=== PATIENT | male | born 1985 | race Caucasian/White ===

== ENCOUNTER 2018-08-01 15:41 | Emergency (ER) | payer OTHER ==
[2018-08-01] MEDS: HYDROCODONE/APAP (10/325) TAB PO (17:48)
[2018-08-01] MEDS: DIPHTH/TET/ACEL PERTUSS (ADULT) 0.5 ML VIAL IM* (17:54)
[2018-08-01] MEDS: LIDOCAINE 2%/EPI MPF (SDV) 20 ML VIAL INJ (19:00)
== END 2018-08-01 19:12 | disposition home or self-care (01) ==
LOC: FTE 15:41
DX: L05.91 Pilonidal cyst without abscess (principal)
CPT/HCPCS: 10080; 90715; 99283-25